=== PATIENT | male | born 1975 ===

== ENCOUNTER → 2017-08-14 | Outpatient (CLI) | payer OTHER ==
[~2017-08-14] VITALS: Ht 167.6 cm; Wt 83.9 kg
[~2017-08-14] MED LIST: IOHEXOL 300 MG/ML 100ML BOTTLE IJ ONE
[2017-08-14 12:09] LABS: BUN/Creatinine Ratio 11.2; Potassium 4.4 mmol/L (3.5-5.1)
== END | disposition home or self-care (01) ==
LOC: CT 11:20
DX: J98.4 Other disorders of lung (principal); B18.2 Chronic viral hepatitis C
CPT/HCPCS: 36415; 71260; 80048; Q9967